=== PATIENT | male | born 1980 | race Caucasian/White ===

== ENCOUNTER 2024-01-05 08:23 | Emergency (ER) | payer MEDICAID, SELFPAY ==
[2024-01-05 08:25] VITALS: BP 165/93; PULSE 77; RESP 16; TEMP 36.7; O2SAT 100; BMI 26.9
[2024-01-05 08:26] VITALS: BP 155/93; PULSE 77; RESP 16; TEMP 36.7; O2SAT 100
--- NOTE | 2024-01-05 09:21 | CT_ITS ---
STUDY: CT ABDOMEN AND PELVIS WITH CONTRAST REASON FOR EXAM: Male, 43 years old. Abdominal pain. History of Crohn''s disease. Blood in the stool. RADIATION DOSAGE (If Supplied By Facility): CTDIvol = ( 12.52 ) mGy, DLP = ( 749.20 ) mGycm TECHNIQUE: Transaxial images were obtained from the dome of the diaphragm to the symphysis pubis without oral contrast. Oral and amp; IV Gastrografin and amp; 100mL Isovue-300 was administered. Sagittal and coronal images were reconstructed. Individualized dose optimization techniques were used for this CT. COMPARISON: None. FINDINGS: Minimal degree of bibasilar atelectasis. The visualized portions of the heart are within normal limits. Normal liver. Normal gallbladder and extrahepatic biliary system. Normal spleen. Normal pancreas. Normal bilateral adrenal glands. Normal right kidney. Normal left kidney. Normal visualized stomach. Mild degree of inflammatory changes of the terminal and distal ileum. There is circumferential wall thickening and edema of the left hemicolon. This is suggestive of colitis. The appendix is visualized and appears normal. Normal abdominal aorta. Normal inferior vena cava. Normal retroperitoneum. Normal urinary bladder. Normal abdominal wall. Normal osseous structures. CT/Abdomen/Pelvis WITH Contrast IMPRESSION: Findings suggestive of colitis involving the left hemicolon as well as inflammatory changes of the terminal and distal ileum.. Electronically Signed: Margarito Charlton MD at 11:05 EDT ,
--- NOTE | 2024-01-05 09:22 | ED.VIS.GI ---
HPI HPI - GI History of Present Illness Chief Complaint: Abd Pain Informant: patient Abdominal Pain/Flank Pain Onset: Weeks (2) Context: Gradual Onset Timing: Continuous Quality: Cramping and Sharp Location: LLQ Worsened by: Nothing Relieved by: Nothing Nausea/Vomiting/Emesis GI Symptom: Negative for Nausea or Vomiting Diarrhea/Melena/Hematochezia Onset: Yesterday Stool Quality: Positive for Maroon Associated Symptoms Associated Symptoms: Negative for Dysuria, Frequency or Hematuria Narrative Narrative: Patient presents with abdominal pain that has been constant for the past 2 weeks. Patient states it is gradually gotten worse. Patient describes the pain as sharp and cramping. Patient states it is mainly over the left lower abdomen. Patient states nothing makes it better nothing makes it worse. Patient states she has noted some maroon stools over the past few days. Patient denies any nausea or vomiting. Patient denies any fevers but admits to some subjective chills. Patient denies any urinary complaints. PFSH PFSH Medical History (Updated 01/05/24 @ 12:[address] Emiliano Mauro DO) Crohn's disease Stroke/cerebrovascular accident Home Medications ?Medication ?Instructions ?Recorded ?Last Taken ?Type ciprofloxacin HCl 500 mg tablet 500 mg PO BID #20 TABLETS 01/05/24 Unknown Rx dicyclomine 10 mg capsule 20 mg (2 x 10 mg) PO TIDAC #20 01/05/24 Unknown Rx CAPSULES metronidazole 500 mg tablet 500 mg PO Q6H #40 tabs 01/05/24 Unknown Rx Allergy/AdvReac Type Severity Reaction Status Date / Time promethazine (From Phenergan) AdvReac Mild ANXIETY Verified 01/05/24 08:27 Surgical History (Updated 01/05/24 @ 12:[address] Emiliano Mauro DO) S/P ORIF (open reduction internal fixation) fracture Hx of inguinal herniorrhaphy H/O umbilical hernia repair Social History Smoking Status: Current every day smoker tobacco type: cigarettes ROS ROS ED Constitutional Constitutional ED: Reports chills and sweats; Denies fever(s) Eyes Eyes: Denies blurry vision or change in vision ENT ENT ED: Denies rhinorrhea or sore throat Cardiovascular Cardiovascular: Reports chest pain; Denies palpitations Respiratory/Chest Respiratory/Chest: Reports dyspnea; Denies cough Gastrointestinal Gastrointestinal: Reports abdominal pain, diarrhea and melena; Denies nausea or vomiting Genitourinary Genitourinary ED: Denies dysuria or hematuria Musculoskeletal Musculoskeletal: Denies back pain or neck pain Integumentary Denies abscess or rash Neurologic Neurologic: Denies headache(s) or weakness Allergic/Immunologic Allergic/Immunologic ED: Denies mouth swelling or urticaria EXAM Physical Exam Const Vital Signs: 01/05/24 08:25 01/05/24 08:26 Temperature 98.1 F 98.1 F Temperature Source Temporal Temporal Pulse Rate 77 77 Respiratory Rate 16 16 Blood Pressure 165/93 H 155/93 H Blood Pressure Mean 117 113 Pulse Ox 100 100 Oxygen Delivery Method Room Air Room Air Positive well nourished and well developed General Appearance ED: well developed and NAD HEENT Reports moist mucous membranes normocephalic Resp normal respiratory effort and clear to auscultation bilaterally Cardio regular rate and regular rhythm GI non-distended Palpation: soft and tender LLQ; Negative for guarding or rebound tenderness present Neuro CN's II-XII intact bilaterally, moves all extremities and no sensory deficits noted Sensorium / Orientation: alert Motor Exam: strength 5/5 throughout Psych mental status grossly normal MDM MDM MDM Narrative Medical decision making narrative: Differential diagnosis includes diverticulitis, urinary tract infection, ureteral calculus, Crohn's exacerbation, colitis, gastroenteritis, pancreatitis, and gastrointestinal bleeding. CBC will be obtained to assess for leukocytosis and anemia. Comprehensive metabolic profile will be obtained to assess for electrolyte abnormality, renal function, and hepatic function. Lipase will be obtained to assess for pancreatitis. Urinalysis will be obtained to assess for urinary tract infection and hematuria. CT scan of the abdomen pelvis will be obtained to assess for diverticulitis, colitis, bowel obstruction, and perforation. Lab Data Attestation: I reviewed the patient's lab results. Lab results narrative: CBC was reviewed. There is a mild leukocytosis of 12.8. The remainder is within normal limits. Comprehensive metabolic profile was reviewed and was within normal limits. Lipase was reviewed and was normal at 62. Urinalysis was reviewed. There is no evidence of urinary tract infection or hematuria. Radiography Diagnostic Testing: CT scan of the abdomen pelvis was obtained. There is evidence of colitis and ileitis. There is no evidence of obstruction or perforation. There is no free air or free fluid. This was interpreted by the radiologist was also independently reviewed by myself. Treatment and Re-Evaluation :: Patient was given IV fluids, morphine, and Zofran. Smoking cessation was discussed. Patient was advised of his findings. Patient states he had another bowel movement here in the emergency department which caused his pain to increase. Patient was given a repeat dose of morphine. Patient was given a dose of Cipro and Flagyl here. Patient was given prescription for Cipro and Flagyl. Patient was given a prescription for Bentyl for pain. 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 Patient was also instructed to follow-up with his primary care doctor in 3 to 5 days. Patient was instructed to return if worse in any way. Patient understood and was agreeable with the plan. All questions were answered. Discharge Plan Triage Chief Complaint: Abd Pain ED Provider: Emiliano Mauro Dx/Rx/DC Orders Clinical Impression: Colitis, Abdominal pain, Crohn's disease Instructions: ED Understanding Colitis, ED Crohn's Disease, ED Abdominal Pain Unkn Cause Male... Prescriptions: New metronidazole 500 mg tablet 500 mg PO Q6H Qty: 40 0RF ciprofloxacin HCl 500 mg tablet 500 mg PO BID Qty: 20 0RF dicyclomine 10 mg capsule 20 mg PO TIDAC Qty: 20 0RF Primary Care Provider: George Silverio Referrals: George Silverio MD [Primary Care Provider] - 3-5 Days Print Language: Japanese Disposition Disposition: Home, Self Care
[2024-01-05] MEDS: Morphine 4 MG/ML Syringe IV ×2 (09:38→12:42)
[2024-01-05] MEDS: Ondansetron 4 MG/2 ML Vial IV (09:38)
[2024-01-05] MEDS: 0.9% Normal Saline (1000mL) 1,000 ML 999 ML IV (09:39)
[2024-01-05 09:41] LABS: Mucous, Urine 0 SEEN /hpf (<or=2+); Red Blood Cells-Urine 0 SEEN /hpf (0-5); White Blood Cells 0 SEEN /hpf (0-5)
[2024-01-05 09:43] LABS: Color, Urine Yellow (Yellow); Glucose, Dipstick Normal (Normal); Ketone-Dipstick Negative (Negative); Leukocyte Esterase-Dipstick Negative /ul (Negative); Nitrite-Dipstick Negative (Negative); Occult Blood-Urine Negative /ul (Negative); Protein-Dipstick Negative (Negative); Specific Gravity, Urine 1.015 (1.002-1.030); Urine Bilirubin Dipstick Negative (Negative); Urine Clarity Clear (Clear); Urine Urobilinogen Normal (Normal); Urine pH 6.5 (5.0 - 8.0)
[2024-01-05 09:45] LABS: Absolute Neutrophil Count 9.9 X10^3/uL (2.0-7.7); Basophil# 0.06 X10^3/uL; Basophil% 0.5 % (0-1); Eosinophil# 0.16 X10^3/uL; Eosinophils% 1.2 % (0-5); Hematocrit 47.2 % (40-54); Hemoglobin 16.1 g/dL (13.0-16.5); Lymphocyte % 15.6 % (19-41); Mean Corp Hgb Conc 34.1 g/dL (32-36); Mean Corpuscular Hgb 30.4 pg (27.0-32.0); Mean Corpuscular Volume 89.1 fL (80-94); Mean Platelet Vol. 10.7 fl (6.2-12.0); Monocyte# 0.67 X10^3/uL; Monocyte% 5.2 % (0-10); NRBC Flagged by Analyzer 0 % (0-5); Neutrophil # 9.88 X10^3/uL (2.7-7.7); Platelet Count 237 K/mm3 (150-450); RBC Distribution Width CV 12.4 % (11.6-14.6); RBC Distribution Width SD 40.6 fl (35.1-43.9); White Blood Count 12.8 K/mm3 (4.4-11.0)
[2024-01-05 09:54] LABS: Bacteria 1+ /hpf (None Seen); Renal Epithelial Cells 0-5 SEEN /hpf (0-5); Squamous Epithelial Cells - UA 0-5 SEEN /hpf (0-5)
[2024-01-05 10:00] VITALS: BP 119/79; PULSE 86; RESP 16; TEMP 36.7; O2SAT 99
[2024-01-05 10:08] VITALS: BP 119/79; PULSE 86; RESP 16; O2SAT 99
[2024-01-05 10:08] LABS: AST(SGOT) 28 U/L (15-37); Alanine Aminotransfer ALT/SGPT 61 U/L (16-61); Albumin, Serum 3.7 g/dL (3.2-5.0); Alkaline Phosphatase 101 U/L (45-117); Anion Gap 1 (5-15); BUN 20 mg/dL (7-18); BUN/Creat Ratio 23.6 RATIO (10-20); Calcium,Total 9.1 mg/dL (8.5-10.1); Chloride 108 mmol/L (98-107); Creatinine, Serum 0.85 mg/dL (0.70-1.30); EST Glomerular Filtration Rate 105 mL/min (>60); Est Glom Filt Rate - Afr Amer 128 mL/min (>60); Estimated Creatinine Clearance 103.21 ml/min; Globulin 3.6 g/dL (2.2-4.2); Glucose 103 mg/dL (74-106); Lipase 62 U/L (13-75); Potassium 4.3 mmol/L (3.5-5.1); Protein, Total 7.3 g/dL (6.4-8.2); Sodium Level 138 mmol/L (136-145)
[2024-01-05] MEDS: Ciprofloxacin 500 MG Tablet PO (12:42)
[2024-01-05] MEDS: metroNIDAZOLE 500 MG Tablet PO (12:47)
[2024-01-05 12:52] VITALS: BP 142/91; PULSE 57; RESP 16; TEMP 36.7; O2SAT 98
== END 2024-01-05 12:54 | disposition home or self-care (01) ==
PROVIDERS: Emergency Provider Emergency Medicine; PCP Family Medicine; Visit Provider Emergency Medicine
DX: K50.90 Crohn's disease, unspecified, without complications (principal); F17.210 Nicotine dependence, cigarettes, uncomplicated; Z86.73 Personal history of transient ischemic attack (TIA), and cerebral infarction without residual deficits
CPT/HCPCS: 74177; 80053; 81001; 82274; 83690; 85025; 96361; 96374; 96375; 96376; 99285; J7030; Q9967; A4216; J2405

== ENCOUNTER 2024-01-08 20:19 | Emergency (ER) | payer MEDICAID, SELFPAY ==
[2024-01-08 20:20] VITALS: BP 148/81; PULSE 102; RESP 18; TEMP 36.3; O2SAT 98
--- NOTE | 2024-01-08 20:57 | EDS_ITS ---
HPI <CLAY Townsend - Last Filed: 01/08/24 22:24> History of Present Illness Chief Complaint: Abd Pain Narrative Narrative: Patient is a 43-year-old male with history of Crohn's disease who currently does not have a GI specialist, patient was seen here on the which was 3 days ago. Patient was diagnosed with colitis, was given Cipro, Flagyl Bentyl. Patient states the pain is now wrapping around to his left flank. He is having more blood in his stool, having more pain. Patient is here for reevaluation, pain control. Denies any fever or chills, states his appetite is decreased. PFSH <CLAY Townsend - Last Filed: 01/08/24 22:24> PFS Medical History (Updated 01/08/24 @ 22:23 by CLAY Townsend) Crohn's disease Stroke/cerebrovascular accident Home Medications ?Medication ?Instructions ?Recorded ?Last Taken ?Type ciprofloxacin HCl 500 mg tablet 500 mg PO BID #20 TABLETS 01/05/24 Unknown Rx dicyclomine 10 mg capsule 20 mg (2 x 10 mg) PO TIDAC #20 01/05/24 Unknown Rx CAPSULES metronidazole 500 mg tablet 500 mg PO Q6H #40 tabs 01/05/24 Unknown Rx dicyclomine 20 mg tablet 20 mg PO TID #20 tabs 01/08/24 Unknown Rx Allergy/AdvReac Type Severity Reaction Status Date / Time promethazine (From Phenergan) AdvReac Mild ANXIETY Verified 01/08/24 20:20 Surgical History S/P ORIF (open reduction internal fixation) fracture Hx of inguinal herniorrhaphy H/O umbilical hernia repair Social History Smoking Status: Current every day smoker tobacco type: cigarettes ROS <CLAY Townsend - Last Filed: 01/08/24 22:24> ROS ED ROS Narrative Constitutional: Negative for fever, weight loss. Positive chills, weakness Eyes: Negative for vision loss, vision change, double vision ENT: Negative for any sore throat, ear pain, congestion Cardiovascular: Negative for any chest pain, tightness, palpitations Respiratory: Negative for any cough, sputum production, hemoptysis, dyspnea, dyspnea on exertion, orthopnea Gastrointestinal: Negative for any nausea, vomiting, constipation, blood in vomit. Positive for abdominal pain, nausea, blood in stool : Negative for any urinary frequency, dysuria, retention, blood in urine Muscle skeletal: Negative for any neck pain, back pain Neurological: Negative for any headache, syncope, dizziness Skin: Negative for any rashes, itching, abrasions, lacerations Psychiatric: Negative for any depression, anxiety, stress, suicidal ideation, homicidal ideation Hematologic: Negative for any excessive bruising, easy bleeding EXAM <CLAY Townsend - Last Filed: 01/08/24 22:24> Physical Exam Narrative Exam Narrative: Vital signs reviewed. Vital signs are stable, patient appears to be in mild distress secondary to abdominal pain HEET: Head normocephalic atraumatic, TMs clear bilaterally. Posterior pharynx is clear, moist mucous membranes. Nares clear bilaterally. Neck: Supple with no lymphadenopathy or tenderness. No signs of meningismus. Cardiac: Regular rate and rhythm no murmurs gallops or rubs, equal peripheral pulses bilaterally. Respiratory: Lungs clear to auscultation bilaterally. No chest tenderness. Abdomen: Soft, nondistended. No abdominal bruit or pulsatile masses. No hepatosplenomegaly. Patient's tenderness was worse to the left lower quadrant Extremities: No peripheral edema, no signs of gross trauma or deformity. Active full range of motion of all extremities. Neuro: Cranial nerves II through XII intact, no focal neurological deficits. Skin: Clean dry and intact with no rash, purpura, petechiae, vesicles or pustules. Backs/flank: No CVA tenderness, no midline spinal tenderness, no deformity. Psych: Normal mood and affect. No SI, HI or acute psychosis. Const Vital Signs: 01/08/24 20:20 01/08/24 21:16 Temperature 97.3 F L Temperature Source Temporal Pulse Rate 102 H 87 Respiratory Rate 18 18 Blood Pressure 148/81 H 129/83 H Blood Pressure Mean 103 98 Pulse Ox 98 99 Oxygen Delivery Method Room Air Room Air <Dr. Emiliano Mauro, DO - Last Filed: 01/08/24 21:48> Physical Exam Const Vital Signs: 01/08/24 20:20 01/08/24 21:16 Temperature 97.3 F L Temperature Source Temporal Pulse Rate 102 H 87 Respiratory Rate 18 18 Blood Pressure 148/81 H 129/83 H Blood Pressure Mean 103 98 Pulse Ox 98 99 Oxygen Delivery Method Room Air Room Air [facility] <CLAY Townsend - Last Filed: 01/08/24 22:24> [facility] Lab Data Labs: Laboratory Results - last 24 hr 01/08/24 21:09 WBC 8.2 RBC 4.98 Hgb 15.3 Hct 44.1 MCV 88.6 MCH 30.7 MCHC 34.7 RDW Std Deviation 40.2 RDW Coeff of Jolanta 12.4 Plt Count 238 MPV 11.1 Immature Gran % (Auto) 0.400 Neut % (Auto) 60.9 Lymph % (Auto) 28.1 Angelina % (Auto) 7.7 Eos % (Auto) 2.4 Baso % (Auto) 0.5 Absolute Neuts (auto) 5.0 Absolute Lymphs (auto) 2.31 Nucleated RBC % 0 Sodium 141 Potassium 3.5 Chloride 109 H Carbon Dioxide 29.0 Anion Gap 3 L BUN 10 Creatinine 0.87 Estim Creat Clear Calc 116.39 Est GFR (MDRD) Af Amer 124 Est GFR (MDRD) Non-Af 103 BUN/Creatinine Ratio 11.5 Glucose 88 Lactic Acid 1.5 Calcium 8.9 Total Bilirubin 0.30 AST 39 H ALT 69 H Alkaline Phosphatase 84 Total Protein 6.5 Albumin 3.5 Globulin 3.0 Albumin/Globulin Ratio 1.2 Lipase 27 Treatment and Re-Evaluation :: Differential diagnosis includes however is not limited to: Increasing colitis, bowel perforation, pneumoperitoneum, abscess, diverticulitis, anemia, anal fissure Patient appears to be in no obvious distress, patient does look to be in slight amount of discomfort secondary to pain in the left lower quadrant. Vital signs are stable. Patient will receive a repeat workup for ongoing abdominal pain. Patient will receive IV fluids, Zofran, morphine, IM Bentyl. I will reevaluate the laboratory values that were done on 04 January and compare them today.Patient's CT scan did show findings suggestive of colitis involving the left hemicolon as well as inflammatory changes in the terminal and distal ileum. Patient will be reevaluated. Patient reevaluation was improving. Patient's laboratory values showed a improvement of his CBC, hemoglobin 4.98, white blood count was 8.2, 3 days ago was 12.8. Patient's chemistries showed normal electrolytes, anion gap was negative. AST at 39 with a ALT of 69. BUN/creatinine ratio on 04 January was 20.6, is now 11.5. Lipase was negative. We did reach out to GI specialist, patient been able to be discharged home, placed on Bentyl, stool studies are ordered. He will follow-up with Dr. Tierney. Instructed return for any worsening symptoms. Secondary to the improvement of lab values, I do not believe the patient needs any repeat imaging. GI specialist agrees. Stable for discharge <Dr. Emiliano Mauro, DO - Last Filed: 01/08/24 21:48> [facility] MDM Narrative Medical decision making narrative: I have personally performed a face to face assessment of the patient and have reviewed the WILLIS Note. I performed a substantive portion of the visit including all aspects of the following. My walker findings include: History: Patient presents with abdominal pain that became worse over the past couple days. Patient was seen here recently and diagnosed with colitis. Patient states he has had more frequent bloody bowel movements and diarrhea. Patient admits to some nausea and vomiting. Patient denies any hematemesis or coffee-ground emesis. Patient states his pain is still feels like it is mainly on the left lower abdomen. Patient describes it as aching and burning. Patient states he also felt some tearing pain that is similar to the pain he felt with his hernia in the past. Patient denies any fevers or chills. Exam: Vital signs are stable. Patient is afebrile. Patient is in no acute distress. Oral mucosa is pink and moist. Neck is supple. Trachea is midline. There is no JVD. Heart was regular rate and rhythm. Lungs are clear and equal bilaterally. Abdomen is soft. Bowel sounds are normal. There is tenderness mainly in the left lower abdomen but also in the suprapubic area. There is no rebound or guarding noted. Cranial nerves II through XII are intact. There are no focal motor or sensory deficits. Medical Decision Making: Differential diagnosis includes colitis, bowel obstruction, perforation, cholecystitis, pancreatitis, urinary tract infection, pyelonephritis, and ureteral calculus. CBC will be obtained to assess for leukocytosis and anemia. Comprehensive metabolic profile will be obtained to assess for hepatic function, renal function, and electrolyte abnormality. Lipase will be obtained to assess for pancreatitis. Serum lactate will be obtained to assess for sepsis. Urinalysis will be obtained to assess for urinary tract infection. Patient was given IV fluids, Zofran, Bentyl, and morphine. CBC was reviewed and was within normal limits. Case was discussed with Dr. Tierney from gastroenterology. He recommended obtaining a C. difficile and enteric pathogens. He stated the patient will require scheduled Bentyl in addition to the antibiotics. Patient was given prescription for this. Patient understood and was agreeable with the plan. All questions were answered. Lab Data Labs: Laboratory Results - last 24 hr 01/08/24 21:09 WBC 8.2 RBC 4.98 Hgb 15.3 Hct 44.1 MCV 88.6 MCH 30.7 MCHC 34.7 RDW Std Deviation 40.2 RDW Coeff of Jolanta 12.4 Plt Count 238 MPV 11.1 Immature Gran % (Auto) 0.400 Neut % (Auto) 60.9 Lymph % (Auto) 28.1 Angelina % (Auto) 7.7 Eos % (Auto) 2.4 Baso % (Auto) 0.5 Absolute Neuts (auto) 5.0 Absolute Lymphs (auto) 2.31 Nucleated RBC % 0 Sodium 141 Potassium 3.5 Chloride 109 H Carbon Dioxide 29.0 Anion Gap 3 L BUN 10 Creatinine 0.87 Estim Creat Clear Calc 116.39 Est GFR (MDRD) Af Amer 124 Est GFR (MDRD) Non-Af 103 BUN/Creatinine Ratio 11.5 Glucose 88 Lactic Acid 1.5 Calcium 8.9 Total Bilirubin 0.30 AST 39 H ALT 69 H Alkaline Phosphatase 84 Total Protein 6.5 Albumin 3.5 Globulin 3.0 Albumin/Globulin Ratio 1.2 Lipase 27 Discharge Plan Triage Chief Complaint: Abd Pain ED Midlevel Provider: Sherwin Mccracken ED Provider: Emiliano Mauro Dx/Rx/DC Orders Clinical Impression: Abdominal pain, Colitis, Crohn's disease Instructions: Abdominal Pain, Crohns Disease Dc, ED Ulcerative Colitis Prescriptions: New dicyclomine 20 mg tablet 20 mg PO TID Qty: 20 0RF No Action metronidazole 500 mg tablet 500 mg PO Q6H Qty: 40 0RF ciprofloxacin HCl 500 mg tablet 500 mg PO BID Qty: 20 0RF dicyclomine 10 mg capsule 20 mg PO TIDAC Qty: 20 0RF Primary Care Provider: George Silverio Referrals: George Silverio MD [Primary Care Provider] - Friend,DO Joe [Med Staff - Active Staff] - Activity Restrictions/Additional Instructions: Please follow-up outpatient. Print Language: Greenlandic Disposition Disposition: Home, Self Care
[2024-01-08] MEDS: 0.9% Normal Saline (1000mL) 1,000 ML 999 ML IV (21:10)
[2024-01-08] MEDS: Ondansetron 4 MG/2 ML Vial IV (21:11)
[2024-01-08] MEDS: Morphine 4 MG/ML Syringe IV (21:11)
[2024-01-08] MEDS: Dicyclomine 20 MG/2 ML Vial IM (21:11)
[2024-01-08 21:16] VITALS: BP 129/83; PULSE 87; RESP 18; O2SAT 99; BMI 31.4
[2024-01-08 21:27] LABS: Absolute Lymphocyte Count 2.31 X10^3/uL (0.83-4.51); Basophil# 0.04 X10^3/uL; Basophil% 0.5 % (0-1); Eosinophils% 2.4 % (0-5); Hematocrit 44.1 % (40-54); Hemoglobin 15.3 g/dL (13.0-16.5); Lymphocyte # 2.31 X10^3/ul (0.83-4.51); Lymphocyte % 28.1 % (19-41); Mean Corp Hgb Conc 34.7 g/dL (32-36); Mean Corpuscular Hgb 30.7 pg (27.0-32.0); Mean Corpuscular Volume 88.6 fL (80-94); Mean Platelet Vol. 11.1 fl (6.2-12.0); Monocyte# 0.63 X10^3/uL; Monocyte% 7.7 % (0-10); NRBC Flagged by Analyzer 0 % (0-5); Neutrophil # 5.02 X10^3/uL (2.7-7.7); Neutrophil % 60.9 % (47-70); Platelet Count 238 K/mm3 (150-450); RBC Distribution Width CV 12.4 % (11.6-14.6); RBC Distribution Width SD 40.2 fl (35.1-43.9); Red Blood Count 4.98 M/mm3 (4.6-6.2); White Blood Count 8.2 K/mm3 (4.4-11.0)
[2024-01-08 21:46] LABS: ALB/GLOB Ratio 1.2 RATIO (0.9-2.4); AST(SGOT) 39 U/L (15-37); Alanine Aminotransfer ALT/SGPT 69 U/L (16-61); Albumin, Serum 3.5 g/dL (3.2-5.0); Alkaline Phosphatase 84 U/L (45-117); Anion Gap 3 (5-15); BUN 10 mg/dL (7-18); BUN/Creat Ratio 11.5 RATIO (10-20); Calcium,Total 8.9 mg/dL (8.5-10.1); Chloride 109 mmol/L (98-107); Creatinine, Serum 0.87 mg/dL (0.70-1.30); EST Glomerular Filtration Rate 103 mL/min (>60); Est Glom Filt Rate - Afr Amer 124 mL/min (>60); Estimated Creatinine Clearance 116.39 ml/min; Glucose 88 mg/dL (74-106); Lipase 27 U/L (13-75); Potassium 3.5 mmol/L (3.5-5.1); Protein, Total 6.5 g/dL (6.4-8.2); Sodium Level 141 mmol/L (136-145)
[2024-01-08 21:53] LABS: Lactic Acid 1.5 mmol/L (0.4-1.9)
[2024-01-08 22:52] VITALS: BP 125/73; PULSE 72; RESP 18; TEMP 36.6; O2SAT 98
[2024-01-08 23:00] VITALS: PULSE 87
[2024-01-08] MEDS: Morphine 2 MG/ML Syringe IV (23:09)
== END 2024-01-08 23:12 | disposition home or self-care (01) ==
PROVIDERS: Nurse Practitioner; Emergency Provider Emergency Medicine; PCP Family Medicine; Visit Provider Emergency Medicine
DX: K50.90 Crohn's disease, unspecified, without complications (principal); F17.210 Nicotine dependence, cigarettes, uncomplicated; Z86.73 Personal history of transient ischemic attack (TIA), and cerebral infarction without residual deficits
CPT/HCPCS: 80053; 83605; 83690; 85025; 96361; 96372; 96374; 96375; 96376; 99283; J7030; A4216; J2405

== ENCOUNTER → 2024-01-10 | Outpatient (CLI) | payer MEDICAID, SELFPAY | END | disposition home or self-care (01) | PROVIDERS: PCP Family Medicine; Referring Provider Emergency Medicine; Visit Provider Emergency Medicine | DX: K52.9 Noninfective gastroenteritis and colitis, unspecified (principal) | CPT/HCPCS: 87493 ==